=== PATIENT | male | born 1945 | race Caucasian/White ===

== ENCOUNTER 2018-01-09 07:23 | Inpatient (IN) | payer MEDICARE, OTHER, SELFPAY ==
[2017-12-25 11:11] VITALS: BP 142/73; PULSE 77; RESP 16; TEMP 36.8; O2SAT 98; BMI 31.4
--- NOTE | 2017-12-25 11:36 | SDCEKG_ITS ---
Test Reason : Blood Pressure : / mmHG Vent. Rate : 065 BPM Atrial Rate : 065 BPM P-R Int : 216 ms QRS Dur : 120 ms QT Int : 392 ms P-R-T Axes : 024 -55 026 degrees QTc Int : 407 ms Sinus rhythm with 1st degree A-V block with occasional Premature ventricular complexes Left anterior fascicular block Abnormal ECG Confirmed by SID DOWNING, IZAIAH ([id number]), newspaper photo editor ROB RODRIGUEZ ([id number]) on 12/27/2017 1:23:03 PM Referred By: Chevy Rico Confirmed By:IZAIAH LAU MD
[2017-12-25 12:28] LABS: Absolute Lymphocyte Count 0.86 X10^3/ul (0.83-4.51); Absolute Neutrophil Count 3.3 X10^3/uL (2.0-7.7); Anion Gap 10 (5-15); BUN 22 mg/dL (7-18); BUN/Creat Ratio 18.2 RATIO (10-20); Basophil# 0.02 X10^3/uL; Basophil% 0.4 % (0-1); Calcium,Total 9.3 mg/dL (8.5-10.1); Chloride 103 mmol/L (98-107); Creatinine, Serum 1.21 mg/dL (0.70-1.30); EST Glomerular Filtration Rate 62 mL/min (>60); Eosinophil# 0.08 X10^3/uL; Eosinophils% 1.7 % (0-5); Est Glom Filt Rate - Afr Amer 75 mL/min (>60); Estimated Creatinine Clearance 57.91 ml/min; Glucose 280 mg/dL (74-106); Hematocrit 39.6 % (40-54); Hemoglobin 13.3 g/dl (13.0-16.5); Lymphocyte # 0.86 X10^3/ul (4.0); Lymphocyte % 18.5 % (19-41); Mean Corp Hgb Conc 33.6 g/gl (32-36); Mean Corpuscular Hgb 31.9 pg (27.0-32.0); Mean Platelet Vol. 10.2 fl (6.2-12.0); Monocyte# 0.35 X10^3/uL; Monocyte% 7.5 % (0-10); Neutrophil % 71.3 % (47-70); Platelet Count 198 K/mm3 (150-450); Potassium 4.2 mmol/L (3.5-5.1); RBC Distribution Width CV 12.2 % (11.6-14.6); RBC Distribution Width SD 41.2 fl (35.1-43.9); Red Blood Count 4.17 M/mm3 (4.6-6.2); Sodium Level 137 mmol/L (136-145); White Blood Count 4.6 K/mm3 (4.4-11.0)
[2017-12-25 12:31] LABS: POSITIVE COUNT NO; POSITIVE DIFFERENTIAL NO; POSITIVE MORPHOLOGY NO
--- NOTE | 2017-12-25 13:14 | HP.PCM_ITS ---
History and Physical DATE OF SURGERY: 01/09/2018 SCHEDULED PROCEDURE: Right Total Knee Arthroplasty HISTORY OF PRESENT ILLNESS: This is a 72-year-old male who has been having ongoing pain for several years. He states over the past 1 year it has progressively become worse. Patient previously underwent a right knee arthroscopy [place] [address] Weston as well as a left total knee replacement in 2002. Patient states his pain can reach as high as a 10/10. On average as a 3/10. Pain is intermittent and aching. He has increased pain going up and down stairs, driving any amount of distance, and walking. He has difficult time with doing housework and shopping. Patient feels unsafe descending stairs. Patient has tried rest, elevation, and corticosteroid injection with minimal relief. Patient has tried home exercise plan with no relief in symptoms. Patient's last corticosteroid injection was in July 2017 which gave him proximally 5 months relief. He has also tried oral medications consisting of meloxicam and Advil. Patient denies any recent chest pain, shortness of breath, fevers chills, recent infections. Patient does have a medical history pertinent for hypertension, diabetes, and gout. We are obtaining surgical clearance from patient's primary care physician. REVIEW OF SYSTEMS: ROS: Const: Denies anorexia, change in appetite, fever, hard of hearing, vision problems and weight change. CV: Denies chest pain, heart murmur, irregular heartbeat and peripheral vascular disease. Resp: Denies asthma, cough, pneumonia, sleep apnea, SOB, tuberculosis and wheezing. GI: Denies constipation, diarrhea, difficulty swallowing, heartburn, nausea, bloody stools and vomiting. : Urinary: denies incontinence. Musculo: Denies leg swelling, limp, trouble walking and weakness. Skin: Denies Raynaud's, history of shingles and tattoo. Neuro: Denies ambulatory dysfunction, dizziness, numbness/tingling and tremor. Psych: Denies anxiety, depression, insomnia, mental illness and stress. Jonathan/Lymph: Denies anemia, bleeding/bruising tendency and past transfusion. Reviewed, no changes. PAST MEDICAL HISTORY: Advance Care Plan: Other Directive, LIVING WILL Effective Date: 10/17/2017 Other Directive, POA Effective Date: 10/17/2017 PMH: Medical Problems: High Blood Pressure, Diabetes, Gout Accidents: None Surgical Hx: Knee Replacement - (2003) LEFT KNEE, [facility], Trigger Release Left Thumb - (10/30/2008) DR. WESTON, [facility] RT Thumb Trigger Release - (01/14/2010) KIARRA @ [facility] Knee Arthroscopy RT - (2003) [facility] Laminectomy - (2015) [facility] Anesthesia Complications: None Assistive Devices: Glasses - READING Reviewed, no changes. SOCIAL HISTORY: SH: Marital: .Occupation: [place] Retired.Work Status: Retired.Hand Dominance: Ambidextrous. Personal Habits: Smoking: Patient is a former smoker.Cigarette Use: Former.Alcohol: Occasionally.Drug Use: Denies Use.Enjoy Exercising: Exercises 1- 3 x/month. Reviewed, no changes. VITALS: Ht: 71 Wt: 225lb Wt k.060 BMI: 31.4 BP: 171/90 Pulse: 73 Resp: 16 T: 97.9 T: 36.6C ALLERGIES: Aleve - Rash MEDICATIONS: Lisinopril/Hydrochlorothiazide 20-12.5 mg 1 po qdAY, Metformin HCL 500 mg 1 by mouth every day, Indomethacin 50 mg 1 by mouth twice a day, Atorvastatin Calcium 10 mg 1po qday PRE-OP EXAM: General appearance:NORMAL Other: Eyes: Conjunctivae and lids: NORMAL Pupils: ERR Ears, Nose, Mouth, and Throat: NORMAL Other: Inspection of lips, teeth and gums: NORMAL Other: Neck: Examination of neck: no masses noted. Respiratory: Assessment of respiratory effort: NORMAL Other: Auscultation of lungs: clear to auscultation no wheezes, rhonchi or rales. Cardiovascular: Auscultation of heart: regular rate and rhythm, no murmurs, g allops or rubs. Exam of carotid arteries: NORMAL Other: Gastrointestinal: Exam of abdomen: soft, nontender, nondistended bowel sounds present. PHYSICAL EXAMINATION: Patient does walk with an antalgic gait. Previous incisions are well healed with no erythema or signs of infection. No significant effusion. Range of motion right knee: Lacks 7 of full extension to 120 of flexion with increased p ain and crepitus. Sensation intact to light touch. Neurovascularly intact. Negative varus/valgus stress test. IMAGING STUDIES: X-rays of the right knee were obtained which does reveal varus alignment with medial joint space narrowing, subchondral sclerosis, and osteophyte formation consistent with severe osteoarthritis. IMPRESSION: 1. Severe right knee osteoarthritis 2. Hypertension 3. Diabetes 4. Gout PLAN: Dr. Rico did discuss and review with the patient all treatment options including surgical versus nonsurgical options. Patient does wish to proceed with the above-stated procedure. Potential risks, benefits, and complications of the procedure were discussed in detail including but not limited to , infection, nerve and blood vessel damage, persistent pain, numbness, tingling, paresthesias, blood clot, pulmonary embolism, and requirement for possible further surgery. The patient expressed full understanding and has no further questions for the doctor. Patient does agree to proceed with the above-stated procedure and has signed the surgery consent form. ___ I have re-examined the patient. There are no clinical changes since date of exam. ___ See progress notes for changes. ___ Dictated on admission Date: Time: Signature:
[2017-12-25 15:48] LABS: Hemoglobin A1c 7.7 % (4.2-6.3)
[2018-01-02 17:19] LABS: Albumin, Serum 3.7 g/dL (3.2-5.0)
--- NOTE | 2018-01-04 13:39 | CASEMGMT ---
Call placed to patient to discuss discharge needs after upcoming surgery. Patient plans to return home with assist from . Patient is unsure if any outpatient physical therapy is set up. Patient had knee surgery previously and did not elect to do PT, may do the same thing this time per patient. Patient has a walker, it does not have wheels on the front. Patient has a high toilet, shower seat. There are no grab bars in the bathroom, patient reports that the way the bathroom is set up he does not need grab bars. Patient has a bedroom and bathroom on the 1st level of the home. There are 3 steps to get into the home from the outside. Informed patient that RN-CM will likely follow up with patient after surgery. Shelby Arango LPN Clinical Support
[2018-01-09] VITALS (12 sets, daily range): BP systolic 124–155; BP diastolic 74–90; PULSE 64–81; RESP 14–18; TEMP 36.2–36.9; O2SAT 92–100; BMI 31.4; BMI 30.2
[2018-01-09] MEDS: Acetaminophen 500 MG Tablet 1000 MG PO ×3 (08:12→21:41)
[2018-01-09] MEDS: Celecoxib 200 MG Capsule 400 MG PO (08:12)
[2018-01-09 08:41] LABS: Bedside Glucose 190 mg/dL (70-110)
--- NOTE | 2018-01-09 09:11 | RAD_ITS ---
STUDY: X-RAY - RIGHT KNEE REASON FOR EXAM: Male, 72 years old. Total knee replacement. TECHNIQUE: AP and lateral view(s) of the knee. COMPARISON: None. FINDINGS: Normal visualized distal femur. Normal visualized proximal tibia and fibula. Normal proximal tibiofibular articulation. The patient is status post total knee replacement. There is good alignment. Postoperative soft tissue changes. RAD/Knee 1 or 2 Views IMPRESSION: Status post total knee replacement. There is good alignment. Postoperative soft tissue changes. Electronically Signed: Ilia Martinez MD at 15:14 EST Tel [phone], Service support ,
[2018-01-09] MEDS: Lactated Ringers 1,000 ML 999 ML IV (09:15)
[2018-01-09] MEDS: Cefazolin 2 GM in 0.9% Normal Saline 100 ML IV (09:16)
--- NOTE | 2018-01-09 10:44 | PCM.OPRPT ---
Report of Operation Date of Procedure: 01/09/18 Pre-Operative Diagnosis: Left knee primary osteoarthritis Post-Operative Diagnosis: Left knee primary osteoarthritis Surgery/Procedure Performed:: Left total knee replacement Description of Surgical Findings:: Stable knee with good patella tracking cigarette making machine hopper feeder: Marco Salgado Type of Anesthesia:: Spinal Anesthesiologist: Alfredo Velasquez Special Medications: 2 g Ancef, 1 g TXA at incision, 1 g TXA closure, 10 mg Decadron, joint cocktail (5 mg Duramorph, 30 mL of 0.5% Ropivicaine, 1000 units of epinephrine, 30 mg of Toradol) Specimen's removed: Bony cuts Estimated Blood Loss (mL): 50 Fluids Replaced: 1300 ml crystalloid Description of Procedure: Implants used: 1. Violeta size 6 press-fit triathlon cruciate retaining distal femoral component 2. Dearborn size 7 press-fit tibial baseplate 3. Dearborn X3 9 mm CS polyethylene 4. Violeta X3 38 mm asymmetric patella Brief history operative indications: 72-year-old m with history of Right knee osteoarthritis with radiographic findings with loss of joint space, osteophyte formation and subchondral sclerosis. Failed conservative measures as mentioned in the H&P. Discussion of total knee arthroplasty as well as risk and benefits were discussed the patient including but not limited to blood loss, DVTs, PEs, neurovascular damage, general risk of anesthesia including loss of life, and stiffness or instability were discussed with patient. Patient demonstrated understanding and was able to sign informed consent. Procedure: On the date of procedure patient's right lower extremity was marked in the preoperative area. The patient was then taken back to the operating room where the patient was placed on the table in the supine position. All bony prominences were identified a well-padded. Anesthesia assumed control of the C-spine and airway and remained controlled throughout the remainder of the procedure. A tourniquet was placed on the right upper thigh and the leg was prepped in a sterile fashion. The surgeon then scrubbed at this time .Upon reentering the room right lower extremity was draped in a standard orthopedic fashion. A timeout was then called and everyone agreed upon the side, the site, the procedure to be performed, patient's identity and antibiotics given. Esmarch bandage was used to exsanguinate the extremity and the tourniquet was placed up to 250 mmHg with the knee in flexion. A midline skin incision was made and sharp dissection was taken down through skin subcutaneous tissue and fat. The standard medial parapatellar incision was made and the patella was subluxed laterally. The standard deep MCL release was done and the fat pad was resected. Next our attention was directed to the femur. Navigation pins were placed, navigation was registered. The distal femoral cutting block was pinned into place and 10 mm of distal femur resection was completed. The distal femoral cut was verified with navigation. The knee was then placed in deep flexion in the standard Lever sizing guide was used to place the femoral component in 3? external rotation based on the posterior condyles. A size 6 4-in-1 cutting block was selected and pinned into place. The anterior cut was then made and checked for notching. The subsequent anterior chamfer cuts, posterior condylar cuts and posterior chamfer cuts were made while ensuring the MCL and LCL were protected. Our attention was then turned to the tibia where the navigation pins were placed, navigation was registered. OpenSpark tibial cutting guide was used to make the appropriate tibial cut 90 degrees from the mechanical axis. Navigation was then used to verify the cut. A size 7 tibial base plate was selected. the knee was flexed to 90 degrees and the soft tissues and posterior osteophytes were removed from the joint. 40 cc of the periarticular injection was injected into the posterior medial corner of the joint. The appropriate trials were then placed on the femur and tibia. A trial polyethylene was trialed to ensure proper balancing and stability of the knee. Patella tracking, was then verified and corrected appropriately as needed. The appropriate tibial internal rotation was then marked with a bovie. Our attention was then directed to the patella. The patella was everted and a flat resection was made. The lug holes were drilled and the patella trial was placed. Patellar tracking was checked and deemed appropriate. Once we were happy lug holes were drilled for the femur and trial components were removed. Cement was mixed at this time and the tourniquet was let down the tibia was subluxed and pinned into place and the keel was punched and the canal was reamed. Final components were verified and opened, and cement was mixed in a vacuum. Violeta Simplex cement was used. The wound was copiously irrigated with normal saline. When the cement was ready the press-fit components were impacted into place starting with the tibia, femur and finally the patella cemented into place. The trial poly component was placed and the knee was placed in full extension. All excess cement was removed in the process. Once the cement had cured the tracking, alignment and balance were verified and a size 9 mm polyethylene component was placed. Once the final components were placed the wound was copiously irrigated with normal saline solution and the periarticular injection was given. The wound was closed in a layer bernstein fashion using #1 vicryl interrupted sutures for the arthrotomy, 2-0 interrupted Vicryl suture for the subcuticular layer and semaj for final skin closure. A sterile compressive dressing was then placed. The patient was then awakened from anesthesia, transferred to the rocala and transferred to the PACU for recovery. Post op plan DVT ppx: ASA 81mg, thigh high compression stockings Follow up: in office in 2 weeks for wound check PT: to start POD #0 at hospital, outpatient PT should be arranged. My physician portfolio assistant was a vital part of this case. He was important in appropriate retraction during the case, and protection of soft tissues during bony cuts. His intimate knowledge of the case and my steps aided in safe and expedient completion of the procedure as well as appropriate position of the leg during the case. He was also vital in assisting with closure under my direct supervision. Grafts/Implants Used: Violeta triathlon cruciate retaining press-fit - Complications None - Admit VTE Documentation VTE Present on Admission: No VTE Mechan Device Prophylaxis: SCD's, Thigh High LINO Hose VTE Pharm Prophylaxis ordered?: Yes
[2018-01-09 11:45] LABS: Bedside Glucose 139 mg/dL (70-110)
[2018-01-09] MEDS: Scopolamine 1mg/72hr Patch 1 PATCH TD (11:49)
[2018-01-09 13:05] LABS: Bedside Glucose 174 mg/dL (70-110)
[2018-01-09] MEDS: Lactated Ringers 1,000 ML 125 ML IV ×2 (13:41→21:41)
[2018-01-09] MEDS: Famotidine 20 MG Tablet PO (13:42)
[2018-01-09] MEDS: Insulin Lispro 100 UNIT/ML INSULN.PEN SC ×3 (13:43→21:42)
[2018-01-09 16:55] LABS: Bedside Glucose 212 mg/dL (70-110)
[2018-01-09] MEDS: Cefazolin 1 GM/50 ML BAG IV (17:06)
[2018-01-09] MEDS: metFORMIN HCl 1,000 MG Tablet 1000 MG PO (17:07)
[2018-01-09] MEDS: Atorvastatin Calcium 10 MG Tablet PO (21:41)
[2018-01-09] MEDS: Aspirin E.C. 81 MG Tablet PO (21:42)
[2018-01-09] MEDS: Senna/Docusate Sodium 1 Tablet 2 TABLET PO (21:42)
[2018-01-09 21:56] LABS: Bedside Glucose 158 mg/dL (70-110)
[2018-01-10] MEDS: Cefazolin 1 GM/50 ML BAG IV (00:14)
[2018-01-10 02:00] VITALS: BP 148/71; PULSE 91; RESP 16; TEMP 36.7; O2SAT 96
[2018-01-10 06:00] LABS: Hematocrit 33.9 % (40-54); Hemoglobin 11.4 g/dl (13.0-16.5); Mean Corp Hgb Conc 33.6 g/gl (32-36); Mean Corpuscular Volume 95.2 fL (80-94); Mean Platelet Vol. 10.3 fl (6.2-12.0); Platelet Count 167 K/mm3 (150-450); RBC Distribution Width CV 12.2 % (11.6-14.6); Red Blood Count 3.56 M/mm3 (4.6-6.2); White Blood Count 6.6 K/mm3 (4.4-11.0)
[2018-01-10 06:04] LABS: Scan Indicated on CBC? Y/N NO
[2018-01-10 06:11] LABS: Anion Gap 11 (5-15); BUN 20 mg/dL (7-18); Calcium,Total 8.4 mg/dL (8.5-10.1); Chloride 101 mmol/L (98-107); Creatinine, Serum 1.05 mg/dL (0.70-1.30); EST Glomerular Filtration Rate 73 mL/min (>60); Est Glom Filt Rate - Afr Amer 89 mL/min (>60); Estimated Creatinine Clearance 66.73 ml/min; Glucose 184 mg/dL (74-106); Potassium 4.1 mmol/L (3.5-5.1); Sodium Level 137 mmol/L (136-145)
[2018-01-10] MEDS: Acetaminophen 500 MG Tablet 1000 MG PO ×2 (06:48→13:43)
--- NOTE | 2018-01-10 06:48 | PCM.PN.ORT ---
Subjective: The patient was sitting in bed upon examination. Patient denies any chest pain, shortness of breath, dizziness, lightheadedness, nausea or vomiting, or calf pain. Pain is controlled on medications. No adverse overnight events. Overall patient is doing well this morning. Patient did have a block postoperatively. Patient does wish to try to go home today. Objective: Vital signs stable and afebrile. Patient is able to plantarflex and dorsiflex actively. Sensation is intact to light touch to saphenous, sural, superficial and deep peroneal, and tibial distribution. Dressing is with minimal drainage Negative Homans bilaterally, negative signs and symptoms of DVT. - Physical Exam General: Alert, Oriented x3, Cooperative, No apparent distress Vital Signs Temp Pulse Resp BP Pulse Ox 98.1 F 91 16 148/71 H 96 01/10/18 02:00 01/10/18 02:00 01/10/18 02:00 01/10/18 02:00 01/10/18 02:00 Oxygen Delivery Method Room Air Weight: 98.43 kg Body Mass Index (BMI) 30.2 Finger Stick Blood Glucose 139 Intake and Output for Last 24 Hours 01/08/18 01/09/18 01/10/18 23:59 23:59 23:59 Intake Total 2785 / 2785 2080 Balance 2785 / 2785 2080 Laboratory Tests Past 24 Hrs 01/10/18 01/10/18 05:28 05:28 WBC 6.6 RBC 3.56 L Hgb 11.4 L Hct 33.9 L MCV 95.2 H MCH 32.0 MCHC 33.6 RDW 12.2 RDW Differential 41.0 Plt Count 167 MPV 10.3 Sodium 137 Potassium 4.1 Chloride 101 Carbon Dioxide 25.0 Anion Gap 11 BUN 20 H Creatinine 1.05 Estim Creat Clear Calc 66.73 Est GFR (MDRD) Af Amer 89 Est GFR (MDRD) Non-Af 73 BUN/Creatinine Ratio 19.0 Glucose 184 H Calcium 8.4 L POC Glucose 01/09/18 01/09/18 01/09/18 21:40 16:48 12:57 POC Glucose 158 H 212 H 174 H 01/09/18 01/09/18 11:39 08:09 POC Glucose 139 H 190 H Medical Necessity - Tobacco Use Smoking Status: Former smoker Assessment/Plan 1. S/P right total knee arthroplasty POD #1 2. Continue Pain Medications: Tylenol and OxyIR 3. DVT Prophylaxis: Aspirin 81 mg twice daily for 4 weeks postoperatively 4. PT/OT: Weightbearing as tolerated 5. H & H: 11.4/33.9, asymptomatic 6. Encouraged Incentive Spirometry 7. Disposition: Plan will be for possible discharge home this afternoon if pain is controlled on medications and patient tolerates physical therapy. Prescriptions will be E scribed to [facility] pharmacy. Patient will follow-up per postop instructions..
[2018-01-10] MEDS: Insulin Lispro 100 UNIT/ML INSULN.PEN SC ×2 (06:52→11:46)
--- NOTE | 2018-01-10 06:55 | PCM.DC.TKR ---
Discharge Diet: 1800 Calorie Control Diet Discharge Activity: May Not Drive May shower in (days): 1 - Turned dressing away from water Ice area for (Minutes): 20 - every hour while awake. Weight Bearing Status: Weight bearing as tolerated Elevate: Operative Extremity Additional Activity Instructions:: Wear elastic stockings for 2 weeks after your surgery. Call your doctor if your incision/area has: Continuous Slow Oozing, Sudden Increased Bleeding, Increased Pain/ Swelling, Increased Redness, Foul Smelling Discharge Call your doctor if you observe: Fever of 101 or Higher, Coldness, Increased Pain, Numbness or Tingling, Change in Color, Calf discomfort, Uncontrolled pain Remove Dressing in (days):: 4 - Okay to remove dressing on January 14, 2018 Additional Instructions: Follow [facility] postop instructions Do not take indomethacin over the next 4 weeks while on aspirin. Contact her office if having a flareup with your gout. Allergies/Adverse Reactions: Allergies naproxen [From Aleve] Allergy (Verified 12/25/17 11:05) Rash Medications to take at Discharge Atorvastatin Calcium [Lipitor] 10 mg PO QHS 12/25/17 Lisinopril/Hydrochlorothiazide [Zestoretic 20-12.5 mg Tablet] 1 each PO DAILY 12/25/17 Metformin HCl 500 mg PO BID 12/25/17 Metformin HCl [Glucophage] 1,000 mg PO 1800 12/25/17 Acetaminophen [Tylenol] 1,000 mg PO Q8 #90 tablet 01/10/18 Aspirin E.C. [Ecotrin] 81 mg PO BID #60 tablet 01/10/18 Famotidine [Pepcid] 20 mg PO DAILY #30 tablet 01/10/18 Meloxicam [Mobic] 7.5 mg PO BIDCM #60 tablet 01/10/18 Oxycodone [Oxyir] 5 - 10 mg PO Q4H PRN PRN 5 Days #60 tablet 01/10/18 Senna/Docusate Sodium [Senokot-S] 2 tablet PO BID #20 tablet 01/10/18 The following prescriptions were given: Oxycodone [Oxyir] 5 - 10 mg PO Q4H PRN PRN 5 Days #60 tablet PRN Reason: Mod-Severe Pain (-12/13) Acetaminophen [Tylenol] 1,000 mg PO Q8 #90 tablet Famotidine [Pepcid] 20 mg PO DAILY #30 tablet Aspirin E.C. [Ecotrin] 81 mg PO BID #60 tablet Meloxicam [Mobic] 7.5 mg PO BIDCM #60 tablet Senna/Docusate Sodium [Senokot-S] 2 tablet PO BID #20 tablet Primary Care Physician: Josiah Rey [Primary Care Provider] - Test Results: Test results from this visit will be discussed in further detail at your follow-up appointment, if applicable. Please Follow Up With: Physical therapy When: 01/12/18 @ 8:00 am Please Follow Up With: Marco Salgado PA-C When: 01/22/18 @ 8:15 am
[2018-01-10 07:00] LABS: Bedside Glucose 202 mg/dL (70-110)
[2018-01-10 07:40] VITALS: BP 137/95; PULSE 112; RESP 18; TEMP 37.5; O2SAT 94
[2018-01-10] MEDS: Aspirin E.C. 81 MG Tablet PO (07:50)
[2018-01-10] MEDS: Meloxicam 7.5 MG Tablet PO (07:50)
[2018-01-10] MEDS: Senna/Docusate Sodium 1 Tablet 2 TABLET PO (07:50)
[2018-01-10] MEDS: Lisinopril 20 MG Tablet PO (07:51)
[2018-01-10] MEDS: Famotidine 20 MG Tablet PO (07:51)
[2018-01-10] MEDS: hydroCHLOROthiazide 12.5mg 12.5 MG PO (07:51)
[2018-01-10 09:26] VITALS: PULSE 112
--- NOTE | 2018-01-10 11:15 | CASEMGMT ---
TREVOR HUI Face to Face with patient for initial transition planning/care coordination assessment. RN EZ introduced self and role at [facility]. Patient lying in bed, alert and oriented. Patient willing to participate in assessment and is able to answer all questions appropriately. Care providers, pharmacy, and demographics verified. Patient wishes to discharge home and is setup with [facility] for outpatient therapy with providing transportation. Patient states he has no further needs or concerns at this time. CM to follow for discharge planning needs that may arise. Disposition Plan: Patient to discharge home with outpatient therapy, family support, and follow-up plans in place. Britni ALFARO, RN, CM
[2018-01-10 11:49] VITALS: BP 150/89; PULSE 96; RESP 18; TEMP 36.9; O2SAT 95
[2018-01-10] MEDS: oxyCODONE 5 MG Tablet PO (12:02)
[2018-01-10 20:26] LABS: Bedside Glucose 196 mg/dL (70-110)
== END 2018-01-10 14:00 | disposition home or self-care (01) | DRG 470 ==
LOC: MS3 07:25
PROVIDERS: Admitting Provider Specialist; Family Provider Family Medicine; PCP Family Medicine; Referring Provider Specialist; Visit Provider Specialist
PROC: 0SRC0J9 Replacement of Right Knee Joint with Synthetic Substitute, Cemented, Open Approach (ICD-10-PCS; CPT 27447; principal; 2018-01-09 09:00)
DX: M17.11 Unilateral primary osteoarthritis, right knee (principal); Z96.652 Presence of left artificial knee joint; I10 Essential (primary) hypertension; E11.9 Type 2 diabetes mellitus without complications; M10.9 Gout, unspecified; Z79.84 Long term (current) use of oral hypoglycemic drugs; Z87.891 Personal history of nicotine dependence
CPT/HCPCS: 36415; 73560; 80048; 82040; 82962; 83036; 85025; 85027; 87081; 93005; 97110; 97163; 97166; 97530; 99251; C1776; J7120; G0463; J2405

== ENCOUNTER → 2020-02-18 14:48 | Outpatient (CLI) | payer MEDICARE, OTHER, SELFPAY ==
--- NOTE | 2020-02-18 15:40 | CT_ITS ---
STUDY: CT ABDOMEN AND PELVIS WITH AND WITHOUT CONTRAST REASON FOR EXAM: Male, 74 years old. Hydronephrosis. RADIATION DOSAGE (If Supplied By Facility): CTDIvol = ( 17.9 ) mGy, DLP = ( 2185.74 ) mGycm TECHNIQUE: Transaxial images were obtained from the dome of the diaphragm to the symphysis pubis without oral contrast. IV 100mL Isovue-300 was administered. Sagittal and coronal images were reconstructed. Individualized dose optimization techniques were used for this CT. COMPARISON: None. FINDINGS: Calcified granuloma in the right middle lobe. Lungs are otherwise unremarkable. The visualized portions of the heart are within normal limits. Normal liver. Normal gallbladder and extrahepatic biliary system. Normal spleen. Normal pancreas. Normal bilateral adrenal glands. Normal right kidney. No hydronephrosis. There is minimal dilatation of the mid ureter thought to be due to peristalsis. There is no filling defect. There is left hydronephrosis and hydroureter to the urinary bladder without filling defect. Normal visualized stomach. Normal small intestine. Sigmoid diverticulosis without acute inflammatory change. Proximal colon is unremarkable. The appendix is visualized and appears normal. Minimal atherosclerotic changes of the abdominal aorta without aneurysm or dissection. Normal inferior vena cava. Normal retroperitoneum. The urinary bladder is well-distended without wall thickening or filling defect. The prostate is enlarged and invaginates into the bladder floor. There is no pelvic lymphadenopathy. No free air or free fluid is seen within the peritoneal cavity. Normal abdominal wall. There are diffuse degenerative changes of the visualized lumbar spine. There is laminectomy defects L3-L5. CT/CT Abd/Pelvis W/WO Contrast IMPRESSION: 1. Left hydronephrosis and hydroureter without filling defect. 2. Mild prominence of the right mid ureter without hydronephrosis. 3. Enlarged prostate. Bladder is well-distended. Question bladder outlet obstruction as the cause of the left hydronephrosis. 4. No other evidence of abdominal or pelvic abnormality. 5. Degenerative changes lumbar spine with L5-L5 laminectomies. Electronically Signed: Homar Cast DO at 22:55 EST Tel [phone], Service support ,
== END ==
PROVIDERS: PCP Family Medicine; Referring Provider Nurse Practitioner Adult Health; Visit Provider Nurse Practitioner Adult Health
DX: N13.39 Other hydronephrosis (principal); R93.41 Abnormal radiologic findings on diagnostic imaging of renal pelvis, ureter, or bladder
CPT/HCPCS: 74178; Q9967; A4216

== ENCOUNTER 2020-10-28 08:57 | Day surgery (SDC) | payer MEDICARE, OTHER, SELFPAY ==
--- NOTE | 2020-10-21 12:23 | EKG12_ITS ---
Test Reason : PREOP Blood Pressure : / mmHG Vent. Rate : 070 BPM Atrial Rate : 070 BPM P-R Int : 214 ms QRS Dur : 118 ms QT Int : 384 ms P-R-T Axes : 030 -48 043 degrees QTc Int : 414 ms Sinus rhythm with 1st degree A-V block Left axis deviation Septal infarct , age undetermined Abnormal ECG Confirmed by AJIT DOWNING, MARILEE ([id number]), news videotape editor CARL DIALLO ([id number]) on 10/22/2020 9:19:20 AM Referred By: Abhi Pate Confirmed By:MARILEE FONG MD
[2020-10-21 13:55] LABS: Hematocrit 39.4 % (40-54); Hemoglobin 12.6 g/dL (13.0-16.5); Mean Corpuscular Hgb 31.3 pg (27.0-32.0); Mean Platelet Vol. 9.9 fl (6.2-12.0); Platelet Count 220 K/mm3 (150-450); RBC Distribution Width CV 14.3 % (11.6-14.6); RBC Distribution Width SD 51.9 fl (35.1-43.9); Red Blood Count 4.02 M/mm3 (4.6-6.2); White Blood Count 5.4 K/mm3 (4.4-11.0)
[2020-10-21 14:21] LABS: Anion Gap 6 (5-15); BUN 25 mg/dL (7-18); Calcium,Total 9.3 mg/dL (8.5-10.1); Chloride 103 mmol/L (98-107); Creatinine, Serum 0.96 mg/dL (0.70-1.30); EST Glomerular Filtration Rate 81 mL/min (>60); Est Glom Filt Rate - Afr Amer 98 mL/min (>60); Glucose 156 mg/dL (74-106); Sodium Level 138 mmol/L (136-145)
[2020-10-28] VITALS (7 sets, daily range): BP systolic 131–155; BP diastolic 60–85; PULSE 55–68; RESP 16; TEMP 36–36.6; O2SAT 96–98; BMI 28.8
[2020-10-28] MEDS: Lactated Ringers 1,000 ML 100 ML IV (09:53)
[2020-10-28 10:45] LABS: Bedside Glucose 153 mg/dL (70-110)
--- NOTE | 2020-10-28 10:55 | PROS_PTH ---
PATIENT: FRANCES WALKER LOC: [facility] U#:[id number] AGE/SX: 75/M ROOM: RE10/28/[address]: Dr. Abhi Pate MD : [id number] BED: DIS: 10/28/2020 SPEC #: [id number] RECD: 10/28/20 13:58 STATUS: LION LARA #: [id number] YONATAN: 10/28/20 10:[address]: Abhi Pate DEPT: SURGICAL PATHOLOGY RECD BY: Carine Olivares ENTERED: 10/29/20 07:55 SP TYPE: TURP OTHR DR: Dr. Josiah Rey MD Tissues: Prostate, NOS Procedures: Surgery Specimen Level IV HEADER OPERATION: Cysto, TUR prostate, [employer] PRE-OP DIAGNOSIS: BPH TISSUE SUBMITTED: Prostate tissue MICROSCOPIC DIAGNOSIS Prostate tissue, TUR: Benign prostatic hyperplasia, glandular and stromal type. SJ:cristian 10/30/2020 MICROSCOPIC DESCRIPTION Slides are reviewed. GROSS DESCRIPTION Received is one container labeled with the patient's name and designated prostate tissue. The specimen consists of multiple irregular fragments of pink-espitia, rubbery, soft tissue that in aggregate weigh 4.7 gm and measure in aggregate 4.5 x 5 x 1.5 cm. The entire specimen is submitted in seven cassettes. / SJ:cristian 10/29/20 TC:5 CPT: 56704
--- NOTE | 2020-10-28 11:54 | HP.PCM_ITS ---
HPI - General HPI Narrative FRANCES WALKER, is a 75 M who presents for transurethral resection of the prostate. [facility] Medical History (Updated 10/28/20 @ 11:[address] Abhi Pate MD) Alcohol use Arthritis Back pain Diabetes Former smoker Gout High cholesterol History of irregular heartbeat History of trigger finger Hypertension Rheumatoid arthritis Wears contact lenses Wears glasses Wears hearing aid Home Medications atorvastatin 10 mg PO QHS 12/25/17 [History Last Taken Unknown] lisinopril-hydrochlorothiazide [Zestoretic] 1 ea PO DAILY 12/25/17 [History Last Taken Unknown] metformin 1,000 mg PO 1800 12/25/17 [History Last Taken Unknown] metformin 500 mg PO 0600 12/25/17 [History Last Taken Unknown] tamsulosin 0.4 mg PO DAILY 08/26/20 [History Last Taken Unknown] ciprofloxacin HCl [Cipro] 500 mg PO BID #10 tab 10/28/20 [Rx Last Taken Unknown] oxycodone-acetaminophen 1 tab PO Q6H PRN 7 Days #14 tab 10/28/20 [Rx Last Taken Unknown] Allergy/AdvReac Type Severity Reaction Status Date / Time naproxen [From Aleve] Allergy Rash Verified 10/28/20 09:51 Surgical History (Updated 08/26/20 @ 12:41 by Amanda Moraes) History of total left knee replacement (TKR) History of total right knee replacement (TKR) (~01/09/18) Hx of fusion of cervical spine (~07/23/20) Hx of laminectomy Social History Smoking Status: Former smoker ROS Constitutional Constitutional: Denies chills, fever(s) or malaise Eyes Eyes: Denies blurry vision or change in vision ENT HEENT: Reports none Cardiovascular Cardiovascular: Denies chest pain or palpitations Respiratory/Chest Respiratory/Chest: Denies cough or shortness of breath with exertion Gastrointestinal Gastrointestinal: Denies abdominal pain, constipation or diarrhea Musculoskeletal Musculoskeletal: Denies back pain, joint stiffness or joint swelling Integumentary Integumentary: Denies dry skin, jaundice, lesions or rash Neurologic Neurologic: Denies confusion, syncope or weakness Psychiatric Psychiatric: Reports none; Denies anxiety or depression Endocrine Endocrinology: Denies excessive sweating, fatigue or flushing Hematologic/Lymphatic Hematologic/Lymphatic: Denies anemia, easy bleeding or easy bruising Vital Signs Vital Signs Vital Signs: 10/28/20 09:43 Temperature 97.8 F Temperature Source Temporal Pulse Rate 68 Respiratory Rate 16 Respiratory Pattern Normal Blood Pressure 142/85 H Blood Pressure Mean 104 Blood Pressure Source Monitor Blood Pressure Position Supine Blood Pressure Location Right Arm Pulse Ox 97 Oxygen Delivery Method Room Air Weight Weight: 93.9 kg Body Mass Index (BMI) 28.8 Physical Exam Const alert and oriented x3 General Appearance: cooperative HEENT normocephalic, head/scalp atraumatic, EAC's normal and TM's normal bilaterally Eyes PERRL and EOMs intact bilaterally Pupil: sluggish Neck no lymphadenopathy, supple and no JVD General: trachea midline Lymph Lymphatic: no lymphadenopathy noted, lymphedema and lymphadenopathy Resp normal respiratory effort, normal air movement and clear to auscultation bilaterally Cardio regular rate, regular rhythm and peripheral pulses 2+ throughout GI soft to palpation, non-tender and non-distended Extremity normal capillary refill and no clubbing, cyanosis or edema General Extremity: no tenderness to palpation of joints or extremities Skin no rashes or lesions noted General Skin Exam: turgor normal Lesions: no lesions Rashes: no rashes Neuro CN's II-XII intact bilaterally Speech: speech normal Motor Exam: strength 5/5 throughout; Negative for general weakness Psych thought process normal, cooperative and affect normal Appearance: appropriate Results Lab / Micro Data Result Diagrams: 10/21/20 12:37 10/21/20 12:37 Labs: Laboratory Results - last 24 hr 10/28/20 09:37: POC Glucose 153 H Assessment & Plan Assessment/Plan (1) BPH (benign prostatic hyperplasia): PLAN: Plan for TURP
--- NOTE | 2020-10-28 11:55 | PCM.DC ---
Discharge Instructions Diet Discharge Diet: No restrictions Activity Discharge Activity: Return to Normal Activity and May Not Drive (while taking narcotic pain medications.) Dressing / Incision Call your doctor if you observe: Fever of 101 or Higher Follow Up Care Please Follow Up With: Abhi Pate MD When: Call [phone] for an appointment Test Results: Test results from this visit will be discussed in further detail at your follow-up appointment, if applicable. Discharge Plan Admission Primary Reason for Your Visit: turp Attending Provider: Abhi Pate Primary Care Provider: Josiah Rey Instructions Patient Instructions: FERN Home Recovery Discharge Orders/Prescriptions Prescriptions: New ciprofloxacin HCl [Cipro] 500 mg tablet 500 mg PO BID Qty: 10 RF: 0 oxycodone-acetaminophen 5-325 mg tablet 1 tab PO Q6H PRN (Reason: pain) 7 Days Qty: 14 RF: 0 Continued metformin 500 MG tablet 500 mg PO 0600 RF: 0 atorvastatin 10 MG tablet 10 mg PO QHS RF: 0 lisinopril-hydrochlorothiazide [Zestoretic] 1 EACH tablet 1 ea PO DAILY RF: 0 metformin 1,000 MG tablet 1,000 mg PO 1800 RF: 0 tamsulosin 0.4 mg capsule 0.4 mg PO DAILY RF: 0 Referrals / Follow Up: Abhi Pate MD [STAFF PHYSICIAN] - Josiah Rey MD [Primary Care Provider] - Disposition Disposition (needs filled in before D/C Order can be placed): Home, Self Care
[2020-10-28] MEDS: Cefazolin 2 GM in 0.9% Normal Saline 100 ML IV (11:57)
--- NOTE | 2020-10-28 12:54 | OP.PCM_ITS ---
Report of Operation Date of Procedure: 10/28/20 Pre-Operative Diagnosis: bph with obstruction Post-Operative Diagnosis: same Surgery/Procedure Performed:: turp Description of Surgical Findings:: In the preoperative setting I discussed with the patient how the surgery would be done with expect afterwards. We discussed how a prostate resection is done and we discussed the risk of the surgery including, bleeding, infection, retrograde ejaculation, changes with ejaculation or intercourse,. We discussed the possibility that the resection of the prostate may not alleviate his urinary symptoms. We discussed the small risk of developing scar tissue along the urethral channel and strictures. We also discussed the chance of the prostate could grow back and he may need further surgery or treatment in the future for prostate problems. Patient was taken back to the operating room, timeout procedure was performed, he was identified and marked and placed on the operating room table. He underwent general anesthesia. He was placed in dorsolithotomy position. Penis and testicles were prepped and draped in usual sterile fashion. Went into the bladder using the visual obturator with a resectoscope. Once inside the bladder identified the right and left ureteral orifice. I then identified the prostate and the anatomy of the prostate. I marked out the area of the sphincter and the verumontanum was identified. I then proceeded with the prostate resection first resected the median lobe. And then resected the right lobe of the prostate. Then to resect the left lobe of the prostate. I then resected the apical tissue of the prostate. Made sure that there was no injury to the sphincter or the verumontanum was still intact. At the end of the resection all the chips were Ellik out of the bladder. I then identified the left and right ureteral orifice and these were confirmed to be in good position and effluxing and not injured. The resectoscope was removed, a 22 [place] catheter was placed into the bladder on continuous irrigation. And the urine was fairly light pink color and draining normally. He was taken back to the PACU in good condition. Surgeon: Abhi Pate Type of Anesthesia: General Drains: 20 [place] Winter Admit VTE Documentation VTE Present on Admission: No VTE Mechan Device Prophylaxis: SCD's
[2020-10-28 13:25] LABS: Bedside Glucose 150 mg/dL (70-110)
--- NOTE | 2020-10-28 15:02 | SUR.PHASEII ---
Patient and educated about indwelling rinaldi catheter care and leg bag use. demonstrated emptying the rinaldi bag with this nurse observing. Educated on UTI prevention; washing hands and keeping catheter tip clean. Dr. Pate Prescribed PO cipro. Rinaldi to stay in place until appointment on Monday. Provided leg bag to be used during the day; this nurse shows patient how to change from 4L rinaldi bag to leg bag. Educated on how to irrigate the rinaldi if needed. Dr. Pate is available via page/ coke crane operator as needed. At this time, urine is pale yellow. 350mL emptied. Patient and agree on understanding education and have no further questions at this time.
== END 2020-10-28 15:09 | disposition home or self-care (01) ==
LOC: SDC 08:57 → AC 08:58
PROVIDERS: Anesthesiology; PCP Family Medicine; Referring Provider Urology; Visit Provider Urology
PROC: (CPT 52601; principal; 2020-10-28 10:45)
DX: N40.1 Benign prostatic hyperplasia with lower urinary tract symptoms (principal); N13.8 Other obstructive and reflux uropathy; I10 Essential (primary) hypertension; E11.9 Type 2 diabetes mellitus without complications; E78.00 Pure hypercholesterolemia, unspecified; M06.9 Rheumatoid arthritis, unspecified; M10.9 Gout, unspecified; Z79.84 Long term (current) use of oral hypoglycemic drugs; Z79.899 Other long term (current) drug therapy; Z87.891 Personal history of nicotine dependence
CPT/HCPCS: 00914; 52601; 36415; 80048; 82962; 83036; 85027; 88305; 93005; J7120; J2405

== ENCOUNTER → 2020-11-05 12:28 | Outpatient (CLI) | payer MEDICARE, OTHER, SELFPAY | PROVIDERS: PCP Family Medicine; Referring Provider Urology; Visit Provider Urology | DX: R30.0 Dysuria (principal) | CPT/HCPCS: 87086 ==

== ENCOUNTER → 2020-11-11 09:52 | Outpatient (CLI) | payer MEDICARE, OTHER, SELFPAY ==
--- NOTE | 2020-11-11 11:22 | NEURO ---
NCS and/or EMG Patient Report Ordering Doctor: Chevy Rico DATE OF SERVICE: 11/11/20 Simone Kennedy presents for electrodiagnostic testing of the upper limbs. Reports numbness and tingling in both hands, worse on the left side. Electrodiagnostic findings: Left median motor nerve demonstrates prolonged distal latency with normal amplitude and reduced conduction velocity. Right median motor nerve demonstrates prolonged distal latency with normal amplitude and reduced conduction velocity. Ulnar motor responses within normal limits bilaterally. Prolonged median F wave bilaterally. Prolonged median sensory latency at the wrist and palm bilaterally normal ulnar and radial sensory responses. On needle EMG, all muscles tested in the upper limbs showed no evidence of denervation with normal motor unit action potentials. Electrodiagnostic impression: This is an abnormal study in the upper limbs 1. Electrodiagnostic findings demonstrate bilateral median mononeuropathy. This is consistent with a moderate bilateral carpal tunnel syndrome.
== END ==
PROVIDERS: PCP Family Medicine; Referring Provider Specialist; Visit Provider Specialist
DX: G56.03 Carpal tunnel syndrome, bilateral upper limbs (principal)
CPT/HCPCS: 95886; 95913

== ENCOUNTER → 2020-11-18 12:05 | Outpatient (CLI) | payer MEDICARE, OTHER, SELFPAY ==
[2020-11-18 15:54] LABS: Absolute Lymphocyte Count 1.03 X10^3/uL (0.83-4.51); Absolute Neutrophil Count 4.4 X10^3/uL (2.0-7.7); Basophil# 0.04 X10^3/uL; Basophil% 0.7 % (0-1); Eosinophil# 0.09 X10^3/uL; Eosinophils% 1.5 % (0-5); Hematocrit 38.4 % (40-54); Hemoglobin 12.4 g/dL (13.0-16.5); Lymphocyte # 1.03 X10^3/ul (0.83-4.51); Mean Corp Hgb Conc 32.3 g/dL (32-36); Mean Corpuscular Hgb 31.2 pg (27.0-32.0); Mean Corpuscular Volume 96.7 fL (80-94); Mean Platelet Vol. 9.6 fl (6.2-12.0); Monocyte# 0.52 X10^3/uL; Monocyte% 8.6 % (0-10); NRBC Flagged by Analyzer 0 % (0-5); Neutrophil # 4.35 X10^3/uL (2.7-7.7); Neutrophil % 71.9 % (47-70); Platelet Count 255 K/mm3 (150-450); RBC Distribution Width CV 13.7 % (11.6-14.6); RBC Distribution Width SD 49.1 fl (35.1-43.9); Red Blood Count 3.97 M/mm3 (4.6-6.2); White Blood Count 6.1 K/mm3 (4.4-11.0)
[2020-11-18 16:21] LABS: Anion Gap 8 (5-15); BUN 17 mg/dL (7-18); BUN/Creat Ratio 18.9 RATIO (10-20); Calcium,Total 9.6 mg/dL (8.5-10.1); Chloride 104 mmol/L (98-107); EST Glomerular Filtration Rate 87 mL/min (>60); Est Glom Filt Rate - Afr Amer 106 mL/min (>60); Glucose 133 mg/dL (74-106); Potassium 4.4 mmol/L (3.5-5.1); Sodium Level 136 mmol/L (136-145)
[2020-11-18 16:23] LABS: Hemoglobin A1c 7.2 % (3.8-5.6)
== END ==
PROVIDERS: PCP Family Medicine; Visit Provider Specialist
DX: Z01.810 Encounter for preprocedural cardiovascular examination (principal); Z01.818 Encounter for other preprocedural examination; E11.9 Type 2 diabetes mellitus without complications
CPT/HCPCS: 36415; 80048; 83036; 85025

== ENCOUNTER 2022-01-07 04:06 | Observation (INO) | payer MEDICARE, OTHER, SELFPAY ==
[2022-01-07] VITALS (10 sets, daily range): BP systolic 116–186; BP diastolic 73–105; PULSE 58–85; RESP 16–22; TEMP 36.7–36.8; O2SAT 95–99; BMI 29.3; BMI 28.3
--- NOTE | 2022-01-07 04:13 | RAD_ITS ---
INDICATION: chest pain EXAMINATION/TECHNIQUE: X-RAY - XR Chest 1 View COMPARISON: None. FINDINGS: LINES/DEVICES: None. LUNGS: No consolidation, edema or effusion. No pneumothorax. MEDIASTINUM AND CARDIOVASCULAR STRUCTURES: Atherosclerotic calcifications. Cardiomediastinal contours within normal limits. BONES AND SOFT TISSUES: Posterior cervical spine fusion hardware partially visualized. No acute osseous abnormality. RAD/Chest 1 View (Portable) IMPRESSION: No acute cardiopulmonary disease. Electronically Signed: Spike Lockhart MD at 4:55 EDT ,
--- NOTE | 2022-01-07 04:13 | EKG12_ITS ---
Test Reason : CHEST PAIN Blood Pressure : / mmHG Vent. Rate : 068 BPM Atrial Rate : 068 BPM P-R Int : 240 ms QRS Dur : 122 ms QT Int : 392 ms P-R-T Axes : 056 -46 012 degrees QTc Int : 416 ms Sinus rhythm with 1st degree A-V block Left axis deviation Non-specific intra-ventricular conduction delay Minimal voltage criteria for LVH, may be normal variant ( [place] product ) Abnormal ECG Confirmed by AJIT DOWNING, MARILEE ([id number]), editor farm journal CARL DIALLO ([id number]) on 01/10/2022 1:17:35 PM Referred By: REBECA Confirmed By:MARILEE FONG MD
--- NOTE | 2022-01-07 04:14 | ED.VIS.CHEST ---
HPI History of Present Illness Chief Complaint: Chest Pain Narrative Narrative: 76-year-old male here with chest pain. History of type 2 diabetes, hypertension, hyperlipidemia. The patient states proximally 1 hour prior to arrival developed right-sided chest pain rating to the right arm. The pain is not exertional and sometimes worse with the deep breath. Denies any cough fever chills. Denies any bleeding diathesis, denies any nausea or vomiting. The patient denies recent surgery in the last 4 weeks or immobilization in the last 3 days, denies previous diagnosis of DVT or PE, hemoptysis, unilateral leg swelling or malignancy with treatment the last 6 months. No estrogen use noted. Insert aorta Old chart reviewed: No recent cath stress or echocardiogram noted in the chart Recent Illness/Hospitalization: No CVD Risk Factors: Positive for Hypertension, Diabetes, Hypercholesterolemia, Family History 1' </=55 and Smoking PE Risk Factors: Negative for Recent Travel/Surgery, Recent Immobilization, Prior DVT or PE, Cancer or OCP + Smoking + >/=35 TAD Risk Factors: Positive for Hypertension; Negative for Marfan's Syndrome or Family History PFSH [facility] Medical History Alcohol use Arthritis Back pain Diabetes Former smoker Gout High cholesterol History of irregular heartbeat History of trigger finger Hypertension Rheumatoid arthritis Skin tear of left forearm without complication Wears contact lenses Wears glasses Wears hearing aid Home Medications atorvastatin 10 mg tablet 10 mg PO QHS CHOLESTEROL 12/25/17 [History Last Taken Unknown] lisinopril 20 mg-hydrochlorothiazide 12.5 mg tablet (Zestoretic) 1 ea PO DAILY BP 12/25/17 [History Last Taken Unknown] metformin 1,000 mg tablet 1,000 mg PO 1800 DIABETES 12/25/17 [History Last Taken Unknown] metformin 500 mg tablet 500 mg PO 0600 DIABETES 12/25/17 [History Last Taken Unknown] tamsulosin 0.4 mg capsule 0.4 mg PO DAILY 08/26/20 [History Last Taken Unknown] allopurinol 300 mg tablet 300 mg PO DAILY 01/07/22 [History Last Taken Unknown] meloxicam 15 mg tablet 15 mg PO DAILY 01/07/22 [History Last Taken Unknown] Allergy/AdvReac Type Severity Reaction Status Date / Time naproxen [From Aleve] Allergy Rash Verified 01/07/22 04:20 Surgical History History of total left knee replacement (TKR) History of total right knee replacement (TKR) (~01/09/18) Hx of fusion of cervical spine (~07/23/20) Hx of laminectomy Social History Smoking Status: Former smoker ROS ROS ED ROS Narrative Constitutional: Denies fever HEENT: Denies sore throat Neck: Denies neck pain Cardiovascular: Endorses chest pain Respiratory: Denies shortness of breath GI: Denies nausea vomiting or abdominal pain : Denies changes in urinary habits Musculoskeletal: Denies muscle or joint pain Neurologic: Denies numbness weakness or loss of sensation Skin denies rash EXAM Physical Exam Narrative Exam Narrative: Nursing triage notes reviewed, Vital signs reviewed Constitutional: please see mdm HENT: MMM Eyes: Pupils equal round and reactive to light, Extraocular muscles intact Neck: No stridor, no JVD, full neck ROM Lungs: Clear to auscultation, No wheezing or rales. No increased work of breathing, no conversational dyspnea, no accessory muscle use, no nasal flaring. No respiratory distress noted Heart: Regular rate and rhythm, No murmurs, No rubs and No gallops, 2+ distal pulses (radial, femoral, posterior tibial) in all extremities Abdomen: Soft, there is no tenderness, rigidity, rebound or guarding, no obvious peritoneal signs, no palpable pulsatile abdominal masses, no auscultated abdominal bruit : No CVAT Extremities: No edema, no calf tenderness Neuro: No focal neurological deficits, cranial nerves II through XII intact, 5/5 strength in all extremities. Intact sensation to light touch in all extremities, 2+ reflexes bilateral patella dens. Normal gait. No ataxia. Skin: No rash or lesions noted Const Vital Signs: 01/07/22 04:07 01/07/22 04:11 Temperature 98.2 F Temperature Source Temporal Pulse Rate 85 Respiratory Rate 22 H Respiratory Effort Normal Blood Pressure 186/85 H Blood Pressure Mean 118 Pulse Ox 99 Oxygen Delivery Method Room Air Heart Score History: Moderately Suspicious ECG: Normal Age: >/= 65 years Risk Factors: >/= 3 Risk Factors or History of CAD Troponin: </= Normal Limit Score: 5 MDM MDM MDM Narrative Medical decision making narrative: 76-year-old male here with chest pain in setting of diabetes, hypertension, hyperlipidemia, former smoker, alcohol abuse. He was initially hypertensive, tachypneic, afebrile nontoxic-appearing. Exam without focal cardiopulmonary abnormalities. No stigmata of VTE on exam. Low suspicion for PE given low risk Wells score. Low suspicion for dissection given lack of history, clinical exam findings. Concern for ACS, anemia, electrolyte abnormalities, focal cardiopulmonary normality form of pneumothorax, pneumonia, pulmonary edema. I obtained labs and a chest x-ray to further elucidate etiology of the patient's complaints. Initial EKG without STEMI. Troponin negative. Labs unremarkable for significant electrolyte abnormalities or anemia. Given the patient's high risk heart score will admit for serial biomarkers, confirmatory testing and possible cardiology consultation. Discussed with hospitalist accept the patient's case. Lab Data Attestation: I reviewed the patient's lab results. Lab results narrative: CBC without leukocytosis, stable anemia, no thrombocytopenia BMP without evidence of significant electrolyte abnormalities, anion gap, acute kidney injury Troponin is negative, no evidence of myocardial ischemia Labs: Laboratory Results - last 24 hr 01/07/22 01/07/22 04:13 04:13 WBC 5.8 RBC 3.86 L Hgb 12.9 L Hct 38.0 L MCV 98.4 H MCH 33.4 H MCHC 33.9 RDW Std Deviation 50.9 H RDW Coeff of Jay 14.0 Plt Count 220 MPV 9.0 Immature Gran % (Auto) 0.300 Neut % (Auto) 60.6 Lymph % (Auto) 25.1 [place] % (Auto) 10.9 H Eos % (Auto) 2.6 Baso % (Auto) 0.5 Absolute Neuts (auto) 3.5 Absolute Lymphs (auto) 1.45 Nucleated RBC % 0 Sodium 137 Potassium 4.2 Chloride 105 Carbon Dioxide 27.0 Anion Gap 5 BUN 28 H Creatinine 1.26 Estim Creat Clear Calc 52.29 Est GFR (MDRD) Af Amer 71 Est GFR (MDRD) Non-Af 59 L BUN/Creatinine Ratio 22.2 H Glucose 120 H Calcium 9.5 Troponin I High Sens 6 Radiography Chest X-Ray - ED: Read by ED Physician Diagnostic Testing: Clinical Impression(s) from Imaging Studies Chest X-Ray 01/07/22 04:13 IMPRESSION: No acute cardiopulmonary disease. Electronically Signed: Spike Lockhart MD at 4:55 EDT , Chest x-ray with no acute pulmonary abnormalities. EKG Initial EKG: Attestation: I personally reviewed and interpreted this EKG as follows: Comments: EKG with normal sinus rhythm, left axis deviation, prolonged LA interval (first-degree AV block), no STEMI Discharge Plan Triage Chief Complaint: Chest Pain ED Provider: Elroy Harris Dx/Rx/DC Orders Clinical Impression: Chest pain, Hypertension Prescriptions: No Action metformin 500 MG tablet 500 mg PO 0600 Label Comments: AT 0630 & 1200 atorvastatin 10 MG tablet 10 mg PO QHS lisinopril-hydrochlorothiazide [Zestoretic] 1 EACH tablet 1 ea PO DAILY metformin 1,000 MG tablet 1,000 mg PO 1800 tamsulosin 0.4 mg capsule 0.4 mg PO DAILY meloxicam 15 mg tablet 15 mg PO DAILY Label Comments: Take 1 tablet by mouth once a day as needed for pain allopurinol 300 mg tablet 300 mg PO DAILY Primary Care Provider: Josiah Rey Referrals: Josiah Rey MD [Primary Care Provider] -
[2022-01-07] MEDS: Aspirin 81 MG TAB.CHEW 324 MG PO (04:19)
[2022-01-07 04:21] LABS: Absolute Lymphocyte Count 1.45 X10^3/uL (0.83-4.51); Absolute Neutrophil Count 3.5 X10^3/uL (2.0-7.7); Basophil# 0.03 X10^3/uL; Basophil% 0.5 % (0-1); Eosinophil# 0.15 X10^3/uL; Eosinophils% 2.6 % (0-5); Hemoglobin 12.9 g/dL (13.0-16.5); Lymphocyte # 1.45 X10^3/ul (0.83-4.51); Lymphocyte % 25.1 % (19-41); Mean Corp Hgb Conc 33.9 g/dL (32-36); Mean Corpuscular Hgb 33.4 pg (27.0-32.0); Mean Corpuscular Volume 98.4 fL (80-94); Monocyte# 0.63 X10^3/uL; Monocyte% 10.9 % (0-10); NRBC Flagged by Analyzer 0 % (0-5); Neutrophil # 3.49 X10^3/uL (2.7-7.7); Neutrophil % 60.6 % (47-70); Platelet Count 220 K/mm3 (150-450); RBC Distribution Width SD 50.9 fl (35.1-43.9); Red Blood Count 3.86 M/mm3 (4.6-6.2); White Blood Count 5.8 K/mm3 (4.4-11.0)
[2022-01-07 04:39] LABS: Anion Gap 5 (5-15); BUN 28 mg/dL (7-18); BUN/Creat Ratio 22.2 RATIO (10-20); Calcium,Total 9.5 mg/dL (8.5-10.1); Chloride 105 mmol/L (98-107); Creatinine, Serum 1.26 mg/dL (0.70-1.30); EST Glomerular Filtration Rate 59 mL/min (>60); Est Glom Filt Rate - Afr Amer 71 mL/min (>60); Estimated Creatinine Clearance 52.29 ml/min; Glucose 120 mg/dL (74-106); Potassium 4.2 mmol/L (3.5-5.1); Sodium Level 137 mmol/L (136-145); Troponin-I HS (w/2H Reflex) 6 pg/mL (3.0-78.0)
--- NOTE | 2022-01-07 05:42 | HP.PCM.HOS_ITS ---
HPI - General General Date of Admission: 01/07/22 Date of Service: 01/07/22 Chief Complaint: Chest pain HPI Narrative FRANCES WALKER, is a 76 M who presented to the emergency department at [facility] on 01/07/2022 after experiencing chest pain at approximately 3:00 this morning. Patient states it woke him up from sleeping. He indicates it was on the right side of his chest and he has difficulty describing how it felt. It does sound like it was possibly pleuritic as he indicates that was worse with deep breathing. It radiated some to his right arm. He denies any associated diaphoresis, nausea, vomiting or shortness of breath. He indicates he had stress tests probably a year or so ago before previous surgeries and notes that there were no abnormalities. He does have a remote history of tobacco abuse with a [id number] history but quit 30 years ago. His father of coronary disease. Vital signs on presentation show a temperature of 98.2, heart rate of 85, blood pressure was 186/85, respiratory rate was 22, oxygen saturations were 99% on room air. CBC is overall unremarkable. His chemistry panel shows some mild dehydration with a BUN of 28 and a serum creatinine of 1.26. Initial troponin was 6. Chest x-ray was unremarkable and showed no acute cardiopulmonary processes. EKG shows normal sinus rhythm with a first-degree heart block and no ST-T wave changes consistent with acute ischemia. At the time of my evaluation the patient indicates that his symptoms have almost completely resolved. The emergency department he was loaded with full dose aspirin and request for observation admission for stress test rule out was made. The patient does feel that he will be able to ambulate on a treadmill and treadmill stress test was ordered. [facility] Medical History (Updated 01/07/22 @ 05:[address] Coni Red DO) Alcohol use Anemia Arthritis Back pain Diabetes Former smoker Gout High cholesterol History of irregular heartbeat History of trigger finger Hypertension Rheumatoid arthritis Skin tear of left forearm without complication Wears contact lenses Wears glasses Wears hearing aid Home Medications atorvastatin 10 mg tablet 10 mg PO QHS CHOLESTEROL 12/25/17 [History Last Taken Unknown] lisinopril 20 mg-hydrochlorothiazide 12.5 mg tablet (Zestoretic) 1 ea PO DAILY BP 12/25/17 [History Last Taken Unknown] metformin 1,000 mg tablet 1,000 mg PO 1800 DIABETES 12/25/17 [History Last Taken Unknown] metformin 500 mg tablet 500 mg PO 0600 DIABETES 12/25/17 [History Last Taken Unknown] tamsulosin 0.4 mg capsule 0.4 mg PO DAILY 08/26/20 [History Last Taken Unknown] allopurinol 300 mg tablet 300 mg PO DAILY 01/07/22 [History Last Taken Unknown] meloxicam 15 mg tablet 15 mg PO DAILY 01/07/22 [History Last Taken Unknown] Allergy/AdvReac Type Severity Reaction Status Date / Time naproxen [From Aleve] Allergy Rash Verified 01/07/22 04:20 Family History (Updated 01/07/22 @ 05:[address] Coni Red DO) Other Colon cancer Heart disease Multiple sclerosis Surgical History History of total left knee replacement (TKR) History of total right knee replacement (TKR) (~01/09/18) Hx of fusion of cervical spine (~07/23/20) Hx of laminectomy Social History (Updated 01/07/22 @ 05:[address] Coni Red DO) household members: spouse housing: house current occupational status: retired Smoking Status: Former smoker pack-years: 40 how long ago did patient quit smokin alcohol intake: current alcohol intake frequency: holidays/special occasions only substance use type: does not use ROS Constitutional Constitutional: Denies anorexia, change in weight, chills, fatigue, fever(s), malaise, night sweats, weakness or other Eyes Eyes: Denies blurry vision, change in eye color, change in vision, discharge from eye(s), double vision, erythema, eye pain, loss of vision or other ENT HEENT: Denies abnormal hearing, dysphagia, ear pain, epistaxis, headache(s), hearing loss, nasal congestion, nasal discharge, post nasal drip, sinus pressure, sore throat or other Cardiovascular Cardiovascular: Reports chest pain; Denies claudication, dyspnea on exertion, edema, lightheadedness, orthopnea, palpitations, paroxysmal nocturnal dyspnea, rapid heart rate, syncope or other Respiratory/Chest Respiratory/Chest: Denies cough, dyspnea, excessive phlegm production, hemoptysis, productive cough, shortness of breath at rest, shortness of breath with exertion, wheezing or other Gastrointestinal Gastrointestinal: Denies abdominal pain, coffee ground emesis, constipation, diarrhea, dyspepsia, hematemesis, hematochezia, loose stools, melena, nausea, vomiting or other Genitourinary Genitourinary: Denies burning urination, difficulty urinating, dysuria, hematuria, nocturia, urinary frequency, urinary hesitancy, urinary incontinence, urinary urgency or other Musculoskeletal Musculoskeletal: Reports back pain, joint pain and joint stiffness; Denies arthralgias, joint swelling, myalgias, neck pain or other Neurologic Neurologic: Reports numbness and paresthesias RLE and LLE; Denies abnormal gait, abnormal speech, confusion, disequilibrium, dizziness, focal weakness, headache(s), seizure-like activity, seizures, syncope, tingling, tremor(s) or other Psychiatric Psychiatric: Denies anxiety, depression, homicidal ideation, suicidal ideation or other Endocrine Endocrinology: Denies change in body appearance, cold intolerance, excessive sweating, heat intolerance, polydipsia, polyuria or other Hematologic/Lymphatic Hematologic/Lymphatic: Denies anemia, easy bleeding, easy bruising, lymphad enopathy or other Allergic/Immunologic Allergic/Immunologic: Denies rhinitis, hives, eczemia, asthma or other Vital Signs Vital Signs Vital Signs: 01/07/22 04:07 01/07/22 04:11 01/07/22 05:07 Temperature 98.2 F Temperature Source Temporal Pulse Rate 85 64 Respiratory Rate 22 H 18 Respiratory Effort Normal Blood Pressure 186/85 H Blood Pressure Mean 118 Pulse Ox 99 97 Oxygen Delivery Method Room Air Room Air Weight Weight: 95.4 kg Body Mass Index (BMI) 29.3 Physical Exam Const alert, oriented x3, no apparent distress, healthy appearing and well nourished Constitutional Narrative: Overweight, older white male sitting up in bed, at bedside, patient appears comfortable nontoxic General Appearance: cooperative HEENT normocephalic, head/scalp atraumatic and moist oral mucous membranes HEENT Narrative: Moderate hearing loss, dentition is fair, Mallampati is 2, no thrush Neck no lymphadenopathy, supple and no carotid bruits Neck Narrative: Trachea midline, no thyroid enlargement Resp normal respiratory effort, no retractions, no use of accessory muscles and clear to auscultation bilaterally Resp Narrative: Diffusely diminished but clear Auscultation: Negative for crackles, rhonchi or wheezes Cardio regular rate, regular rhythm, S1 normal heart sound, S2 normal heart sound, no rub, no gallops and no clicks Cardio Narrative: 3 out of 6 systolic murmur loudest at right upper sternal border GI normal to inspection, nondistended, normoactive bowel sounds, soft to palpation and non-tender Extremity no clubbing, cyanosis or edema Extremity Narrative: 2+ pedal pulses Neuro oriented x3, CN's II-XII intact bilaterally, moves all extremities and no focal motor deficits Neuro Narrative: Bilateral lower extremity neuropathy Speech: speech normal Psych affect normal Psych Narrative: Very pleasant and appropriate Results Lab / Micro Data Attestation: I reviewed the patient's lab results. Result Diagrams: 01/07/22 04:13 01/07/22 04:13 Labs: Laboratory Results - last 24 hr 01/07/22 04:13: WBC 5.8, RBC 3.86 L, Hgb 12.9 L, Hct 38.0 L, MCV 98.4 H, MCH 33.4 H, MCHC 33.9, RDW Std Deviation 50.9 H, RDW Coeff of Jay 14.0, Plt Count 2 20, MPV 9.0, Immature Gran % (Auto) 0.300, Neut % (Auto) 60.6, Lymph % (Auto) 25.1, [place] % (Auto) 10.9 H, Eos % (Auto) 2.6, Baso % (Auto) 0.5, Absolute Neuts (auto) 3.5, Absolute Lymphs (auto) 1.45, Nucleated RBC % 0 01/07/22 04:13: Sodium 137, Potassium 4.2, Chloride 105, Carbon Dioxide 27.0, Anion Gap 5, BUN 28 H, Creatinine 1.26, Estim Creat Clear Calc 52.29, Est GFR (MDRD) Af Amer 71, Est GFR (MDRD) Non-Af 59 L, BUN/Creatinine Ratio 22.2 H, Glucose 120 H, Calcium 9.5, Troponin I High Sens 6 Radiology Impression Chest X-Ray 01/07/22 04:13 IMPRESSION: No acute cardiopulmonary disease. Electronically Signed: Spike Lockhart MD at 4:55 EDT , Assessment & Plan Assessment/Plan (1) Chest pain: PLAN: Plan Chest pain -Somewhat atypical on the right side and seems more pleuritic in nature -We will check D-dimer -Cycle cardiac enzymes--> initial troponin was 6 -Check lipids -Check hemoglobin A1c -Continue aspirin -Heart low beta-noble when he 5 mg p.o. twice daily -Continue home atorvastatin -Treadmill stress test -We will make n.p.o. in hopes that this can be done later today -We will run IV fluids at 75 cc/h with LR x1 bag given mild BUN and serum creatinine elevation however the patient does not meet criteria for AGNIESZKA Cardiac murmur -Patient reports he had an echocardiogram and followed with a assistant professor of anthropology at an outside facility and was told that there was nothing to follow-up with at this time DM-2 -Check hemoglobin A1c -Hold home metformin -Sliding scale insulin -Accu-Cheks as ordered -When p.o. diet initiated start cardiac carb control Hypertension -Continue home Zestoretic -Start metoprolol 25 mg p.o. twice daily -Monitor -Hold home meloxicam History of gout -Continue home allopurinol Hyperlipidemia -Continue home atorvastatin -Check lipids BPH status post TURP -Continue home Flomax Osteoarthritis -Status post multiple orthopedic surgeries -As needed Tylenol -Hold meloxicam DVT prophylaxis -Lovenox daily CODE STATUS -full code is verified with the patient on admission Charges/Coding Visit Charges OBSV E&M: 25437 Initial observation care L2
[2022-01-07 06:19] LABS: Reflex Troponin-HS? (from REC) Y
[2022-01-07] MEDS: Lactated Ringers 1,000 ML 75 ML IV (07:46)
[2022-01-07 07:56] LABS: Bedside Glucose 124 mg/dL (74-106)
[2022-01-07 07:58] LABS: Troponin-I HS 7 pg/mL (3.0-78.0)
[2022-01-07 08:18] LABS: Hemoglobin A1c 7.2 % (3.8-5.6)
[2022-01-07 11:14] LABS: Troponin-I HS 6 pg/mL (3.0-78.0)
[2022-01-07] MEDS: Tamsulosin HCl 0.4 MG Capsule PO (11:20)
[2022-01-07] MEDS: 0.9% Saline Lock 10 ML Syringe IV (11:20)
[2022-01-07] MEDS: Allopurinol 300 MG Tablet PO (11:21)
[2022-01-07] MEDS: Metoprolol Tartrate 25 MG Tablet PO (11:21)
[2022-01-07] MEDS: hydroCHLOROthiazide 12.5mg 12.5 MG PO (11:21)
[2022-01-07] MEDS: Lisinopril 20 MG Tablet PO (11:21)
--- NOTE | 2022-01-07 11:44 | DCINST_ITS ---
Discharge Instructions Diet Discharge Diet: 2000 mg Sodium Diet Activity Discharge Activity: Return to Normal Activity Dressing / Incision Call your doctor if you observe: Fever of 101 or Higher, Coldness, Increased Pain, Numbness or Tingling, Change in Color, Inability to urinate, Inability to have a bowel movement, Shortness of breath, Dizziness, Fainting spells, Swelling in the ankles, Chest pain, Prolonged hiccupping, Increased palpitations (irregular heartbeat), Calf discomfort and Uncontrolled pain Follow Up Care Test Results: Test results from this visit will be discussed in further detail at your follow- up appointment, if applicable. Discharge Plan Admission Admit Date/Time: 01/07/22 05:22 Primary Reason for Your Visit: Right-sided chest pain possible musculoskeletal pain Attending Provider: Chaparro Mcneal Primary Care Provider: Josiah Rey Consulting Providers: Coni Red Discharge Orders/Prescriptions Prescriptions: Continued metformin 500 MG tablet 500 mg PO 0600 Label Comments: AT 0630 & 1200 atorvastatin 10 MG tablet 10 mg PO QHS lisinopril-hydrochlorothiazide [Zestoretic] 1 EACH tablet 1 ea PO DAILY metformin 1,000 MG tablet 1,000 mg PO 1800 tamsulosin 0.4 mg capsule 0.4 mg PO DAILY meloxicam 15 mg tablet 15 mg PO DAILY Label Comments: Take 1 tablet by mouth once a day as needed for pain allopurinol 300 mg tablet 300 mg PO DAILY Referrals / Follow Up: Josiah Rey MD [Primary Care Provider] - Within 2 Weeks Disposition Disposition (needs filled in before D/C Order can be placed): Home, Self Care
--- NOTE | 2022-01-07 11:48 | DS.PCM_ITS ---
Providers Date of Admission: 01/07/22 Date of Discharge: 01/07/22 Primary Care Physician: Dr. Josiah Rey MD Reason For Visit: CHEST PAIN Diagnosis Discharge Diagnosis (1) Chest pain: Status: Acute Code(s): R07.9 - Chest pain, unspecified Medications at Discharge Home Medications atorvastatin 10 mg tablet 10 mg PO QHS CHOLESTEROL 12/25/17 lisinopril 20 mg-hydrochlorothiazide 12.5 mg tablet (Zestoretic) 1 ea PO DAILY BP 12/25/17 metformin 1,000 mg tablet 1,000 mg PO 1800 DIABETES 12/25/17 metformin 500 mg tablet 500 mg PO 0600 DIABETES 12/25/17 tamsulosin 0.4 mg capsule 0.4 mg PO DAILY prostate 08/26/20 allopurinol 300 mg tablet 300 mg PO DAILY gout 01/07/22 meloxicam 15 mg tablet 15 mg PO DAILY bone health 01/07/22 Hospital Course Summary of Care Provided Hospital Course: This is a 76-year-old question gentleman admitted for right-sided chest pain when he woke up today. Patient had lifted heavy weight a week ago and then also a grocery bag yesterday. He did not had associated shortness of breath, dizziness lightheadedness. Chest x-ray is unremarkable. EKG shows normal sinus rhythm with first-degree AV block, no appreciable ST-T changes consistent with acute ischemia. Patient had serial troponin negative. His further assessment, diagnosis and management plan as mentioned below: 1. Atypical chest pain most likely musculoskeletal chest pain: Patient had elevated D-dimer 0.98. Patient does not have history of DVT/PE and Wells criteria for PE low but D-dimer was high therefore CT angiogram ordered. CTPA negative for acute PE or aortic dissection. Patient further had treadmill nuclear stress test which was reported normal, negative for significant ischemia. Normal LV systolic function. Patient was hydrated with IV fluid LR then normal saline to prevent contrast-induced nephrotoxicity 2. Cardiac murmur most likely aortic stenosis: Patient had 2D echo in August 2021. Medical record was ordered from [facility], referred from [facility] for murmur but could not obtain. 3. Diabetes mellitus type 2: Patient on metformin at home and that was held. A1c 7.2%. While in the hospital patient was acute decrease in quality myositis. 4. Other comorbidities: Hypertension, gout, dyslipidemia, with history of the post TURP on Flomax, degenerative arthritis status post right TKR, left TKR and fusion of cervical spine. 5. DVT prophylaxis on Lovenox. Discharge medication reconciliation done. Discharge follow-up instructions completed. Discharge process discussed with the patient and all questions were answered to patient's satisfaction. Total time spent, exact 35 minutes on discharge meds reconciliation, examination, coordination of care with nurses and ancillary staff, review of imaging and blood test and discussion with the patient on follow-up instructions. Laboratory Results 01/07/22 04:13: WBC 5.8, RBC 3.86 L, Hgb 12.9 L, Hct 38.0 L, MCV 98.4 H, MCH 33.4 H, MCHC 33.9, RDW Std Deviation 50.9 H, RDW Coeff of Jay 14.0, Plt Count 220, MPV 9.0, Immature Gran % (Auto) 0.300, Neut % (Auto) 60.6, Lymph % (Auto) 25.1, [place] % (Auto) 10.9 H, Eos % (Auto) 2.6, Baso % (Auto) 0.5, Absolute Neuts (auto) 3.5, Absolute Lymphs (auto) 1.45, Nucleated RBC % 0 01/07/22 04:13: Sodium 137, Potassium 4.2, Chloride 105, Carbon Dioxide 27.0, Anion Gap 5, BUN 28 H, Creatinine 1.26, Estim Creat Clear Calc 52.29, Est GFR (MDRD) Af Amer 71, Est GFR (MDRD) Non-Af 59 L, BUN/Creatinine Ratio 22.2 H, Glucose 120 H, Calcium 9.5, Troponin I High Sens 6 01/07/22 04:13: Hemoglobin A1c 7.2 H 01/07/22 04:13: D-Dimer Quant (PE/DVT) 0.98 H* 01/07/22 06:39: Troponin I High Sens 7 01/07/22 07:21: POC Glucose 124 H 01/07/22 10:25: Troponin I High Sens 6 01/07/22 11:17: POC Glucose 131 H Physical Exam Narrative Seen and examined. Patient is feeling comfortable. No chest pain or shortness of breath. Patient had pain at xiphisternum and right side. Physical exam General: Alert, Oriented x3, Cooperative HEENT: Atraumatic, PERRLA, EOMI, Normocephalic Oral: No Gingival or Mucosal Lesions/ Ulcerations Neck: Supple, No JVD, Negative Carotid Bruits Lungs: Air entry diminished in bilateral lung bases. No crepitation/rhonchi Cardiovascular: Regular rate, Regular Rhythm, Normal S1, Normal S2, systolic murmur over left second ICS and cardiac apex. Abdomen: Bowel Sounds Present, Soft, Non Tender, Non-Distended : No renal angle tenderness. No suprapubic tenderness. Extremities: No edema, Capillary Refill Less than 3 Seconds Skin: No rashes, No breakdown Musculoskeletal: No Tenderness to Palpation of Joints or Extremities Neurological: Cranial nerves II-XII grossly intact, DTR 2+/4 and Symmetrical, Neuro grossly intact Psych/Mental Status: Normal Affect, Appropriate. Weight / BMI Weight Weight: 203 lb 0.732 oz Body Mass Index (BMI) 28.3 ABG / Lab / Microbiology Data Result Diagrams: 01/07/22 04:13 01/07/22 04:13 Laboratory: Laboratory Results - last 24 hr 01/07/22 04:13: WBC 5.8, RBC 3.86 L, Hgb 12.9 L, Hct 38.0 L, MCV 98.4 H, MCH 33.4 H, MCHC 33.9, RDW Std Deviation 50.9 H, RDW Coeff of Jay 14.0, Plt Count 220, MPV 9.0, Immature Gran % (Auto) 0.300, Neut % (Auto) 60.6, Lymph % (Auto) 25.1, [place] % (Auto) 10.9 H, Eos % (Auto) 2.6, Baso % (Auto) 0.5, Absolute Neuts (auto) 3.5, Absolute Lymphs (auto) 1.45, Nucleated RBC % 0 01/07/22 04:13: Sodium 137, Potassium 4.2, Chloride 105, Carbon Dioxide 27.0, Anion Gap 5, BUN 28 H, Creatinine 1.26, Estim Creat Clear Calc 52.29, Est GFR (MDRD) Af Amer 71, Est GFR (MDRD) Non-Af 59 L, BUN/Creatinine Ratio 22.2 H, Glucose 120 H, Calcium 9.5, Troponin I High Sens 6 01/07/22 04:13: Hemoglobin A1c 7.2 H 01/07/22 06:39: Troponin I High Sens 7 01/07/22 07:21: POC Glucose 124 H 01/07/22 10:25: Troponin I High Sens 6 Radiography Diagnostic Testing: Radiology Impression Chest X-Ray 01/07/22 04:13 IMPRESSION: No acute cardiopulmonary disease. Electronically Signed: Spike Lockhart MD at 4:55 EDT , D/C Instructions Discharge Diet: 2000 mg Sodium Diet Call your doctor if you observe: Fever of 101 or Higher, Coldness, Increased Pain, Numbness or Tingling, Change in Color, Inability to urinate, Inability to have a bowel movement, Shortness of breath, Dizziness, Fainting spells, Swelling in the ankles, Chest pain, Prolonged hiccupping, Increased palpitations (irregular heartbeat), Calf discomfort and Uncontrolled pain Meaningful Use Info Meaningful Use Diagnoses (Choose all that apply): None applicable Discharge Plan Admission Admit Date/Time: 01/07/22 05:22 Primary Reason for Your Visit: Right-sided chest pain possible musculoskeletal pain Attending Provider: Chaparro Mcneal Primary Care Provider: Josiah Rey Consulting Providers: Coni Red Discharge Orders/Prescriptions Prescriptions: Continued metformin 500 MG tablet 500 mg PO 0600 Label Comments: AT 0630 & 1200 atorvastatin 10 MG tablet 10 mg PO QHS lisinopril-hydrochlorothiazide [Zestoretic] 1 EACH tablet 1 ea PO DAILY metformin 1,000 MG tablet 1,000 mg PO 1800 tamsulosin 0.4 mg capsule 0.4 mg PO DAILY meloxicam 15 mg tablet 15 mg PO DAILY Label Comments: Take 1 tablet by mouth once a day as needed for pain allopurinol 300 mg tablet 300 mg PO DAILY Referrals / Follow Up: Josiah Rey MD [Primary Care Provider] - Within 2 Weeks Disposition Disposition (needs filled in before D/C Order can be placed): Home, Self Care Charges/Coding Visit Charges OBSV E&M: 07580 Observation care discharge
[2022-01-07 11:50] LABS: Bedside Glucose 131 mg/dL (74-106)
[2022-01-07 12:10] LABS: D-Dimer Quantitative (DVT/PE) 0.98 FEU/ug/m (0.27-0.49)
--- NOTE | 2022-01-07 12:44 | CT_ITS ---
STUDY: CTA CHEST REASON FOR EXAM: Male, 76 years old. RULE OUT PULMONARY EMBOLISM -- R/O PE RADIATION DOSAGE (If Supplied By Facility): CTDIvol = ( 14.68 ) mGy, DLP = ( 519.77 ) mGycm TECHNIQUE: The examination was performed with the intravenous administration of IV 100mL Isovue-370. Post-processing of the angiographic images was performed, with multiplanar reformation and 3D reconstruction. Individualized dose optimization techniques were used for this CT. COMPARISON: None. FINDINGS: Normal enhancement of the main pulmonary artery and right and left pulmonary arteries. Normal enhancement of the bilateral peripheral pulmonary arteries. There is no demonstrated pulmonary embolism. There is atherosclerotic calcification of the aortic arch with tortuosity. There is no demonstrated aortic dissection. There are calcifications of the coronary arteries. Calcification of the mitral valve annulus. There are visualized mediastinal lymph nodes, which are within normal size limits, and with normal morphology. Calcified right hilar lymph nodes. Normal visualized trachea and bronchi. The lungs are well expanded. Mild degree of emphysematous changes. Mild scarring in the anterior aspects of both upper lobes. Scarring at the lung bases slightly more prominent in the posterior medial segment of the right lower lobe. Normal pleura. Normal chest wall structures. There are degenerative changes of thoracic spine. Normal visualized upper abdomen. CT/CTA Chest W/WO Contrast IMPRESSION: No evidence of pulmonary embolism. Mild scarring. Electronically Signed: Ilia Martinez MD at 14:01 EDT ,
--- NOTE | 2022-01-07 14:56 | STRESSREP_ITS ---
Stress Test Report Treadmill nuclear stress test Indication; 76-year-old patient presented to the ER at [facility] exper iencing symptoms of chest pain It evidently woke him up from sleep he developed symptoms of chest pain. This patient has multiple risk factor for CAD With diabetes mellitus Hypertension Hyperlipidemia based on clinical presentation had cardiac work-up with EKG cardiac markers and he was scheduled for stress test Underwent treadmill nuclear stress test. Stress protocol: Resting EKG demonstrates. Normal sinus rhythm. Patient exercised according to standard Bola protocol for a total of 6-minute achieving workload of max METS 7. Resting EKG showed normal sinus rhythm Stress EKG showed[, no significant change from the resting EKG, with maximum heart rate of 146 bpm Arrhythmia: No arrhythmia demonstrated Symptoms: Patient had no symptoms of chest pain Blood pressure at rest: 122/80 mmHg blood pressure at the end of stress: 160/76 mmHg Myocardial perfusion protocol. 13 mCi ]of Technetium 99m Sestamibi was injected at rest. Following maximal stress patient was given 41.7 mCi of sestamibi. rest images were reconstructed and compared in the short axis vertical and horizontal long axis. Gated images were also obtained Perfusion SPECT analysis: Review of the images demonstrate normal uptake of sestamibi at rest, post stress images demonstrate similar uptake of sestamibi to the resting images, homogeneous tracer uptake With no evidence of reversible myocardial ischemia. Gated SPECT analysis: The gated ejection fraction is 64%, with normal wall motion and normal LV systolic function Conclusion: Negative treadmill sestamibi myocardial fusion study for significant ischemia. Normal LV systolic function Kaleb Watts MD,FACC,[facility] [place]
== END 2022-01-07 16:24 | disposition home or self-care (01) ==
LOC: ED 04:26 → PCU 05:47
PROVIDERS: Admitting Provider Internal Medicine; Emergency Provider Emergency Medicine; PCP Family Medicine; Visit Provider Internal Medicine
DX: R07.89 Other chest pain (principal); E11.9 Type 2 diabetes mellitus without complications; R01.1 Cardiac murmur, unspecified; E86.0 Dehydration; I44.0 Atrioventricular block, first degree; Z87.891 Personal history of nicotine dependence; E78.00 Pure hypercholesterolemia, unspecified; I10 Essential (primary) hypertension; Z79.84 Long term (current) use of oral hypoglycemic drugs; Z79.899 Other long term (current) drug therapy; N40.0 Benign prostatic hyperplasia without lower urinary tract symptoms; M19.90 Unspecified osteoarthritis, unspecified site
CPT/HCPCS: 36415; 71045; 71275; 78452; 80048; 82962; 83036; 84484; 85025; 85379; 93005; 93017; 96360; 96361; 99251; 99285; A9500; J7120; Q9967; A4216; G0463

== ENCOUNTER → 2022-03-11 | Outpatient (CLI) | payer MEDICARE, OTHER, SELFPAY | END | disposition home or self-care (01) | LOC: LAB 09:04 | PROVIDERS: PCP Family Medicine; Referring Provider Registered Nurse; Visit Provider Registered Nurse | DX: C61 Malignant neoplasm of prostate (principal) | CPT/HCPCS: 36415; 84153 ==

== ENCOUNTER 2022-08-24 09:43 | Emergency (ER) | payer OTHER, MEDICARE, SELFPAY ==
[2022-08-24 09:44] VITALS: BP 163/110; PULSE 99; RESP 13; TEMP 36.6; O2SAT 96; BMI 30.7
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
[2022-08-24] MEDS: Diphth,Pertuss(Acell),Tet Vac 0.5 ML Vial IM (10:01)
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
[2022-08-24 11:44] VITALS: RESP 18
== END 2022-08-24 12:17 | disposition home or self-care (01) ==
PROVIDERS: Emergency Provider Emergency Medicine; PCP Family Medicine; Visit Provider Emergency Medicine
DX: S22.32XA Fracture of one rib, left side, initial encounter for closed fracture (principal); E11.9 Type 2 diabetes mellitus without complications; S00.93XA Contusion of unspecified part of head, initial encounter; E78.00 Pure hypercholesterolemia, unspecified; Z87.891 Personal history of nicotine dependence; I10 Essential (primary) hypertension; Z79.899 Other long term (current) drug therapy; Z79.84 Long term (current) use of oral hypoglycemic drugs; M10.9 Gout, unspecified; Z96.653 Presence of artificial knee joint, bilateral; Y92.410 Unspecified street and highway as the place of occurrence of the external cause; Z23 Encounter for immunization; V89.2XXA Person injured in unspecified motor-vehicle accident, traffic, initial encounter
CPT/HCPCS: 70450; 70486; 71250; 72125; 74176; 90715; 96372; 99284; A4216

== ENCOUNTER → 2023-01-25 | Outpatient (CLI) | payer MEDICARE, OTHER, SELFPAY ==
[2023-01-25 11:30] LABS: PSA,Total - Annual Screen 1.24 ng/mL (0.00-4.00)
== END | disposition home or self-care (01) ==
PROVIDERS: PCP Family Medicine; Referring Provider Urology; Visit Provider Urology
DX: Z12.5 Encounter for screening for malignant neoplasm of prostate (principal)
CPT/HCPCS: 36415; 84153; G0103

== ENCOUNTER → 2023-07-14 | Outpatient (CLI) | payer MEDICARE, OTHER, SELFPAY ==
--- NOTE | 2023-07-14 13:32 | ART_ITS ---
Reason For Study: Weak pulses Procedure A bilateral lower extremity continuous wave Doppler with analog waveform analysis,segmental pressures,and ankle brachial indexes without exercise. Left Segmental Pressures Left brachial= 134mmHg. Left posterior tibial artery = 224mmHg. Left dorsalis pedis artery = 219mmHg. Left digit = 120 mmHg. The left dorsalis pedis waveforms are triphasic. The left posterior tibial artery waveforms are triphasic. Right Segmental Pressures Right brachial= 133mmHg. Right posterior tibial artery = 208mmHg. Right dorsalis pedis artery = 220mmHg. Right digit = 121 mmHg. The right dorsalis pedis waveforms are triphasic. The right posterior tibial artery waveforms are triphasic. Indices The right ankle brachial index by the dorsalis pedis is 1.64. The right ankle brachial index by the posterior tibial artery is 1.55. The right digital-brachial index is 0.90. The left ankle brachial index by the dorsalis pedis is 1.63. The left ankle brachial index by the posterior tibial artery is 1.67. The left digital-brachial index is 0.90. VL/Lower Ext Art Exam w/o Exercis Interpretation Summary Normal right lower extremity posterior tibialis and dorsalis pedis resting ankl e-brachial indices of 1.55 and 1.64 respectively. Normal triphasic Doppler waveforms. Normal right di gital brachial index of 0.9 Normal left lower extremity posterior tibialis and dorsalis pedis ankle-brachia l indices at rest at 1.671.63 respectively. Normal triphasic Doppler waveforms. Normal left digital brachial index of 0.9 Ordering Physician: HANNAH SANDERS Referring Physician: Josiah Rey MD Performed By: Britni Parish RVT
== END | disposition home or self-care (01) ==
PROVIDERS: PCP Family Medicine
DX: R09.89 Other specified symptoms and signs involving the circulatory and respiratory systems (principal)
CPT/HCPCS: 93923

== ENCOUNTER → 2024-06-13 | Outpatient (CLI) | payer MEDICARE, OTHER, SELFPAY ==
--- NOTE | 2024-06-13 13:54 | ART_ITS ---
Reason For Study Reason For Study: PVD Procedure A bilateral lower extremity continuous wave Doppler with analog waveform analysis,segmental pressures,and ankle brachial indexes without exercise. Left Segmental Pressures Left brachial= 123mmHg. Left posterior tibial artery = >254mmHg. Left dorsalis pedis artery = >254mmHg. Left digit = 125 mmHg. The left dorsalis pedis waveforms are triphasic. The left posterior tibial artery waveforms are triphasic. Right Segmental Pressures Right brachial= 125mmHg. Right posterior tibial artery = >254mmHg. Right dorsalis pedis artery = 146mmHg. Right digit = 123 mmHg. The right dorsalis pedis waveforms are triphasic. The right posterior tibial artery waveforms are triphasic. Indices The right ankle brachial index by the dorsalis pedis is 1.16. The right ankle brachial index by the posterior tibial artery is NC. The right digital-brachial index is 0.98. The left ankle brachial index by the dorsalis pedis is NC. The left ankle brachial index by the posterior tibial artery is NC. The left digital-brachial index is 1.00. VL/Lower Ext Art Exam w/o Exercis Interpretation Summary Right EVELYN 1.16, normal. TBI and Doppler/PVR waveforms of the right leg normal a t rest. Left EVELYN not able to be obtained due to non compressible vessels. TBI and Doppl er/PVR waveforms of the left leg normal at rest. Ordering Physician: Spike Chavis Referring Physician: Josiah Rey MD Performed By: JOLYNN MCCARTHY RVT
--- NOTE | 2024-06-13 13:54 | VDLE_ITS ---
Reason For Study Reason For Study: PVD RIGHT LEFT CFV is compressible, spontaneous, phasic, competent CFV is compressible, spontaneous, phasic, competent, and demonstrates normal augmentation. and demonstrates normal augmentation. FV is compressible, phasic, and INCOMPETENT for FV is compressible, spontaneous, phasic, competent greater than 1.0 second. and demonstrates normal augmentation. POP V is compressible, phasic, and INCOMPETENT for POP V is compressible, spontaneous, phasic, competent greater than 1.0 second. and demonstrates normal augmentation. T/P Trunk is compressible. T/P Trunk is compressible. PTV is compressible. PTV is compressible. RT PerV is compressible. LT PerV is compressible. SFJ is INCOMPETENT and measures 0.84 cm. SFJ is competent and measures 0.73 cm. GSV proximal thigh measures 0.40X0.47 cm. GSV proximal thigh measures 0.27X0.34 cm. GSV at knee measures 0.28X0.29 cm. GSV at knee measures 0.31X0.34 cm. GSV INCOMPETENT throughout for greater than 0.5 GSV above knee is INCOMPETENT for greater than 0.5 seconds. seconds. SSV mid calf is competent and measures 0.17X0.21 cm. SSV mid calf is competent and measures 0.16X0.17 cm. Procedure Exam performed in department. This is a venous duplex using B-mode, color flow and spectral Doppler. The exam was diagnostic. Patient was scanned in reverse Trendelenburg position during reflux assessment. VL/Venous Duplex US - Shorty Extrem Interpretation Summary Deep veins of the bilateral lower extremities are patent and compressible segme ntally. There is no evidence of bilateral lower extremity deep vein thrombosis. The bilateral great saphenous veins appea r patent and compressible segmentally. Positive for reflux in the right femoral vein, popliteal vein, saphenofemoral j unction, great saphenous vein throughout. Positive for reflux in the left great saphenous vein above the knee. Ordering Physician: Spike Chavis Referring Physician: Josiah Rey MD Performed By: Chikis Brown RVT
== END | disposition home or self-care (01) ==
LOC: CVS 13:53
PROVIDERS: PCP Family Medicine; Referring Provider Podiatrist Foot & Ankle Surgery; Visit Provider Podiatrist Foot & Ankle Surgery
DX: I73.89 Other specified peripheral vascular diseases (principal); M79.604 Pain in right leg; M79.605 Pain in left leg
CPT/HCPCS: 93923; 93970

== ENCOUNTER → 2024-12-12 | Outpatient (CLI) | payer MEDICARE, OTHER, SELFPAY | END | disposition home or self-care (01) | PROVIDERS: PCP Family Medicine; Referring Provider Psychiatry & Neurology Neurology; Visit Provider Psychiatry & Neurology Neurology | DX: R41.3 Other amnesia (principal) | CPT/HCPCS: 36415; 81401 ==

== ENCOUNTER → 2024-12-26 | Outpatient (CLI) | payer MEDICARE, OTHER, SELFPAY ==
--- NOTE | 2024-12-26 16:03 | MRI_ITS ---
PROCEDURE: BRAIN WITHOUT CONTRAST 12/26/2024 REASON FOR EXAM: MEMORY LOSS ?DEMENTIA TECHNIQUE: Procedure Code: MRIBR Modality: MR Procedure: BRAIN WITHOUT CONTRAST Multiplanar and multisequence images were obtained. COMPARISON: CT dated 08/24/2022. FINDINGS: Severe generalized atrophy with commensurate ventriculomegaly, not significantly changed. Cavum septum pellucidum et vergae, normal variant and unchanged. Metallic susceptibility artifact is noted along the right frontal calvarium, obscuring the adjacent anatomy. 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 Otherwise the brain parenchyma appears unremarkable. The fajardo-white matter differentiation is appropriate. The ventricles are normal in size and configuration. No midline shift. The midline structures are intact, specifically the corpus callosum, septum pellucidum, pituitary gland, and cerebellar vermis. The cervicomedullary junction appears unremarkable. Evidence of bilateral cataract surgery. The paranasal sinuses and mastoid air cells are clear. Diffusion-weighted images demonstrate no restricted diffusion. MRI/Brain without Contrast IMPRESSION: Severe generalized atrophy with commensurate ventriculomegaly, not significantl y changed. Reading Location: [id number]
== END | disposition home or self-care (01) ==
LOC: MRI 15:58
PROVIDERS: PCP Family Medicine; Referring Provider Psychiatry & Neurology Neurology; Visit Provider Psychiatry & Neurology Neurology
DX: R41.3 Other amnesia (principal)
CPT/HCPCS: 70551

== ENCOUNTER → 2025-01-15 | Outpatient (CLI) | payer MEDICARE, OTHER, SELFPAY ==
[2025-01-15 11:50] LABS: Vitamin B12 283 pg/mL (180-914)
== END | disposition home or self-care (01) ==
LOC: LAB 10:23
PROVIDERS: PCP Family Medicine; Referring Provider Psychiatry & Neurology Neurology; Visit Provider Psychiatry & Neurology Neurology
DX: R41.3 Other amnesia (principal); E11.40 Type 2 diabetes mellitus with diabetic neuropathy, unspecified
CPT/HCPCS: 36415; 82607; 84443